=== PATIENT | female | born 1990 | race Caucasian/White ===

== ENCOUNTER 2021-12-29 19:12 | Emergency (ER) | payer MEDICAID, SELFPAY ==
[2021-12-29 19:13] VITALS: BP 118/76; PULSE 85; RESP 16; TEMP 36.9; O2SAT 98; BMI 24.3
--- NOTE | 2021-12-29 19:48 | EX.ED.DYSGE1 ---
HPI History of Present Illness Chief Complaint: General Illness Informant: patient Onset/Context/Timing Onset: Days (3) Context: Gradual Onset Timing: Continuous Quality: See below Current Severity: Moderate Maximum Severity: Moderate Associated Symptoms Associated Symptoms ED: cough Narrative Narrative: Patient started with nonproductive cough, fevers, chills, malaise, myalgias, headaches 2 days ago, positive home COVID test. She is unvaccinated. She denies any dyspnea but has gradually developed soreness in her submandibular area/neck, feels stiff, painful to swallow, feels like razor blades when she does so. She is drinking fluids and trying to force them. She feels poorly but she denies any nausea, vomiting, dyspnea, confusion, focal neurologic symptoms, photophobia or other vision changes. Patient states her daughter has the same symptoms tested positive for COVID as well. PFSH PFSH Medical History no medical history no medical history Allergy/AdvReac Type Severity Reaction Status Date / Time No Known Allergies Allergy Verified 12/29/21 19:17 Surgical History no surgical history no surgical history Social History Smoking Status: Current every day smoker tobacco type: smokeless tobacco ROS ROS ED Constitutional Constitutional ED: Reports body ache(s), chills, fatigue, fever(s), headache(s) and malaise Eyes Eyes: Denies change in vision or diplopia ENT ENT ED: Reports as per HPI, neck pain and sore throat; Denies rhinorrhea Cardiovascular Cardiovascular: Denies chest pain or palpitations Respiratory/Chest Respiratory/Chest: Reports cough; Denies dyspnea or dyspnea on exertion Gastrointestinal Gastrointestinal: Denies abdominal pain, diarrhea, nausea or vomiting Genitourinary Genitourinary ED: Denies dysuria or hematuria Musculoskeletal Musculoskeletal: Reports neck pain; Denies back pain Integumentary Denies abscess or rash Neurologic Neurologic: Reports headache(s); Denies paresthesias or weakness Psychiatric Psychiatric: Denies anxiety or suicidal thoughts EXAM Physical Exam Const Vital Signs: 12/29/21 19:13 Temperature 98.5 F Temperature Source Temporal Pulse Rate 85 Respiratory Rate 16 Blood Pressure 118/76 Blood Pressure Mean 90 Pulse Ox 98 Oxygen Delivery Method Room Air Positive well nourished and well developed Constitutional Narrative: Malaised-appearing, no distress General Appearance ED: well developed and NAD HEENT Reports moist mucous membranes HEENT Narrative: Posterior oropharynx is erythematous including tonsils, there are no exudates. No trismus. Tongue normal no elevation. No asymmetry. Uvula midline. normocephalic and atraumatic Eyes PERRL and EOMs intact bilaterally Neck full ROM and supple Neck Narrative: Tender submandibular anterior lymphadenopathy/adenoids. No meningismus. Full range of motion. No posterior lymphadenopathy. Patient is Resp normal respiratory effort and clear to auscultation bilaterally Cardio regular rate, regular rhythm and no murmurs Rate: Negative for tachycardic GI non-tender and non-distended Auscultation: normoactive bowel sounds Palpation: soft Back/Spine no CVA tenderness General Back: other FROM Extremity normal to inspection and no calf tenderness General Extremety ED: Negative for edema, pulses abnormal or tenderness General Extremity: Negative for edema or pulses abnormal Neuro oriented x3, CN's II-XII intact bilaterally and no sensory deficits noted Sensorium / Orientation: awake and alert Motor Exam: strength 5/5 throughout Skin no rashes or lesions noted and no wounds MDM MDM MDM Narrative Medical decision making narrative: Patient concerned about the possibility of strep superinfection. We ran a strep test. It is negative, culture sent. She was given Decadron for lymphadenopathy, she does not meet any criteria for any of the EUA COVID treatments right now, supportive care advised, given appropriate discharge instructions. Her pulse ox is 98% on room air and her vital signs are normal, no need for other testing at this time in my clinical judgment. Discharge Plan Triage Chief Complaint: General Illness ED Provider: Wally Westfall Dx/Rx/DC Orders Clinical Impression: COVID-19, Pharyngitis Instructions: Coronavirus Disease 2019 (COVID-19): Caring for Yourself or Others Primary Care Provider: Rich Inman Referrals: Rich Inman MD [Primary Care Provider] - As Needed Activity Restrictions/Additional Instructions: Try to get a home portable pulse oximeter and closely watch your oxygen levels periodically. If you stay below 90% for more than a minute or so, and/or you are feeling like your breathing is getting worse, return to the emergency department for further evaluation. For the most part stay at home and rest, drink plenty of fluids. On day #6 of symptoms, if you are feeling better, you may go into public with a mask until day 10. Disposition Disposition: Home, Self Care
[2021-12-29] MEDS: dexAMETHasone 4 MG Tablet 8 MG PO (20:34)
== END 2021-12-29 20:45 | disposition home or self-care (01) ==
LOC: ED 20:41
PROVIDERS: Emergency Provider Emergency Medicine; PCP Family Medicine; Visit Provider Emergency Medicine
DX: U07.1 COVID-19 (principal); M43.6 Torticollis; R68.84 Jaw pain; Z28.310 Unvaccinated for COVID-19; F17.290 Nicotine dependence, other tobacco product, uncomplicated
CPT/HCPCS: 87880; 99283; A4216